=== PATIENT | male | born 1965 | race Caucasian/White ===

== ENCOUNTER 2019-04-25 18:48 | Emergency (ER) | payer BC ==
[2019-04-25] MEDS ORDERED: Tetracaine HCl/PF 0.5% 4 ML Bottle EYERT ONE (20:20)
[2019-04-25] MEDS ORDERED: Fluorescein 1 MG Ophth Strip EYERT ONE (20:20)
[2019-04-25] MEDS ORDERED: Diphtheria,Pertussis(Acell),Tetanus Vaccine 0.5 ML SDV IM ONE (20:21)
--- NOTE | 2019-04-25 20:42 | EDM.PDOC ---
ED HPI GENERAL MEDICAL PROBLEM - General Chief Complaint: Eye Problems Stated Complaint: EYE Time Seen by Provider: 04/25/19 20:37 Source of Information: Reports: Patient History Limitations: Reports: No Limitations - History of Present Illness INITIAL COMMENTS - FREE TEXT/NARRATIVE: piece of brisa wire got onto his right eye. was bleeding alot but now stopped. got concerned because of prior injury. Right Lower Eye Pain Score (Numeric/FACES): 3 - Related Data Allergies Allergy/AdvReac Type Severity Reaction Status Date / Time No Known Allergies Allergy Verified 04/25/19 19:52 Home Meds: Home Meds . [No Known Home Meds] 04/25/19 [History] Past Medical History HEENT History: Reports: Impaired Vision - Past Surgical History HEENT Surgical History: Reports: Detached Retina, Eye Surgery Social & Family History - Family History Family Medical History: Noncontributory - Tobacco Use Smoking Status *Q: Never Smoker Second Hand Smoke Exposure: No - Caffeine Use Caffeine Use: Reports: Soda - Recreational Drug Use Recreational Drug Use: No ED ROS GENERAL - Review of Systems Review Of Systems: ROS reveals no pertinent complaints other than HPI. ED EXAM GENERAL W FULL EYE - Physical Exam Exam: See Below Exam Limited By: No Limitations General Appearance: Alert, WD/WN, No Apparent Distress Eye Exam: Bilateral Eye: PERRL (pupils ER @ 4mm) Visual Acuity (R) 20/: 50 (prior eye reconstruction) Visual Acuity (L) 20/: 20 Eyelids: Right: Edema, Other (low with spfl abrasion) Conjunctiva & Sclera: Right: Injected Cornea Exam: Right: Examined with Flourescein (no abrasion noted) Extraocular Movements: Bilateral: Intact Pupillary Size: Bilateral: 4 mm Pupillary Reaction: Bilateral: Brisk Anterior Chamber: Bilateral: Normal Appearance Ears: Hearing Grossly Normal Throat/Mouth: Normal Voice, No Airway Compromise Head: Atraumatic Neck: Non-Tender, Full Range of Motion Respiratory/Chest: No Respiratory Distress Cardiovascular: Regular Rate, Rhythm GI/Abdominal: Soft, Non-Tender Neurological: Alert, Oriented, Normal Cognition, Normal Gait, No Motor/Sensory Deficits Psychiatric: Normal Affect, Normal Mood Skin Exam: Warm, Dry, Normal Color Lymphatic: No Adenopathy Course - Vital Signs Last Recorded V/S: Last Vital Signs Temp 36.6 C 04/25/19 20:04 Pulse 69 10/27/19 20:04 Resp 16 04/25/19 20:04 BP 130/78 04/25/19 20:04 Pulse Ox 100 04/25/19 20:04 - Orders/Labs/Meds Orders: Active Orders 24 hr Category Date Time Status Vaccines to be Administered [RC] PER UNIT ROUTINE Care 04/25/19 20:21 Active Meds: Medications Discontinued Medications Generic Name Dose Route Start Last Admin Trade Name Cassandra PRN Reason Stop Dose Admin Diphtheria/Tetanus/Acell Pertussis 0.5 ml 04/25/19 20:21 Adacel IM 04/25/19 20:22 .ONCE ONE Fluorescein Sodium 1 mg 04/25/19 20:20 Ful-Michaelle EYERT 04/25/19 20:21 ONETIME ONE Tetracaine HCl 1 ml 04/25/19 20:20 Tetracaine 0.5% Steri-Unit Clair EYERT 04/25/19 20:21 ASDIRECTED ONE Departure - Departure Time of Disposition: 20:40 Disposition: Home, Self-Care 01 Condition: Good Clinical Impression: Abrasion of periorbital region of face Qualifiers: Encounter type: initial encounter Qualified Code(s): S00.81XA - Abrasion of other part of head, initial encounter - Discharge Information Additional Instructions: 1) see eye clinic tomorrow if still has problem 2) return if there is any change or concern - My Orders Last 24 Hours: My Active Orders 04/25/19 20:21 Vaccines to be Administered [RC] PER UNIT ROUTINE - Assessment/Plan Last 24 Hours: My Active Orders 04/25/19 20:21 Vaccines to be Administered [RC] PER UNIT ROUTINE
== END 2019-04-25 20:49 | disposition home or self-care (01) ==
LOC: DL.ED 18:48
DX: S00.81XA Abrasion of other part of head, initial encounter (principal); Z23 Encounter for immunization; X58.XXXA Exposure to other specified factors, initial encounter; Y93.89 Activity, other specified
CPT/HCPCS: 90471; 90715; 99282